=== PATIENT | female | born 1960 | race Caucasian/White ===

== ENCOUNTER 2021-08-26 19:29 | Emergency (ER) | payer SELFPAY ==
[2021-08-26 19:31] VITALS: BP 178/82; PULSE 78; RESP 18; TEMP 36; O2SAT 97
--- NOTE | 2021-08-26 20:09 | PC.NURSE ---
Pt significant other states pt will be leaving d/t waiting room no visitor policy. Pt ambulated out of ER with steady gait.
== END 2021-08-26 20:30 | disposition left against medical advice (07) ==
LOC: ANHED 20:14
DX: R21 Rash and other nonspecific skin eruption (principal)
CPT/HCPCS: 99199

== ENCOUNTER 2021-08-27 07:27 | Emergency (ER) | payer MEDICARE, SELFPAY ==
[2021-08-27 07:37] VITALS: BP 144/102; PULSE 68; RESP 16; TEMP 36.6; O2SAT 96
--- NOTE | 2021-08-27 07:51 | ED.GENADULT ---
HPI - General Adult General Chief complaint: Skin/Abscess/Foreign Body Stated complaint: Rash Time Seen by Provider: 08/27/21 07:34 Source: RN notes reviewed History of Present Illness HPI narrative: Patient presents emergency department from home for rash. Patient states rash initially began 6 days ago on her left lower leg. The rash is located over the left knee over the lateral aspect states was a raised red rash that was itchy and she states that over the past several days the rash has spread up around her left knee as well as now is on her right medial knee and several small areas on her left shoulder. She denies any rashes on her chest abdomen back or any other extremities she denies any new soaps or lotions she states that she had been outside but was not in any known weeds or direct contact with anything that would cause a rash states she has been using calamine lotion Related Data Home Medications Medication Instructions Recorded Confirmed metformin 08/27/21 Allergies Allergy/AdvReac Type Severity Reaction Status Date / Time morphine AdvReac Nausea and Verified 08/27/21 07:44 Vomiting Review of Systems Review of Systems: Gen.: Denies fevers or chills ENT: Denies congestion denies swelling of lips or tongue Respiratory: Denies shortness of breath CV: Denies chest pain GI: Denies abdominal pain nausea, Musculoskeletal: Denies back pain or muscle pain Neuro: Denies numbness, tingling, Skin: See HPI Except as documented, all other systems reviewed and negative [facility] Past Medical History Medical History (Updated 08/27/21 @ 07:56 by Yovany Burgess DO) Diabetes mellitus Social History Social History (Updated 08/27/21 @ 07:53 by Yovany Burgess DO) Smoking status: Never smoker Exam Narrative: APPEARANCE: No acute distress, nontoxic, resting in bed Eyes: EOMI HEENT: Normocephalic, atraumatic, RESPIRATORY: No respiratory distress MUSCULOSKELETAl: No clubbing cyanosis or edema. NEURO: Awake and alert. Following commands, speech normal, no focal deficits SKIN:: Warm, dry. Normal Color erythematous raised macular rash over the left lateral knee that extends just above the knee joint and just inferior does not surround the entire knee overlying excoriation no open wounds no vesicles no purulent drainage small area of macular rash over the right medial knee as well as 2 small areas over the left shoulder Course Course Emergency Course: Discussed with patient results of workup and diagnosis. Discussed need for follow-up with primary care, proper use of medication, and reasons to return to the emergency department. Patient understands and agrees to current treatment plan Vital Signs Vital signs: Vital Signs Temperature 97.9 F 08/27/21 07:37 Pulse Rate 68 08/27/21 07:37 Respiratory Rate 16 08/27/21 07:37 Blood Pressure 144/102 H 08/27/21 07:37 Pulse Oximetry 96 08/27/21 07:37 Oxygen Delivery Room Air 08/27/21 07:37 Temperature 97.9 F 08/27/21 07:37 Pulse Rate 68 08/27/21 07:37 Respiratory Rate 16 08/27/21 07:37 Blood Pressure 144/102 H 08/27/21 07:37 Pulse Oximetry 96 08/27/21 07:37 Oxygen Delivery Room Air 08/27/21 07:37 Medical Decision Making MDM Narrative Medical decision making narrative: Patient with localized rash over left knee for 6 days mild spreading of that area as well as on the right knee and left shoulder there is no vesicles there is no open wounds there is no purulent drainage no signs of infection suspect a contact dermatitis discussed with patient we will start on steroids and loratadine patient continues calamine lotion Vital Signs Vital Signs: Vital Signs Temperature 97.9 F 08/27/21 07:37 Pulse Rate 68 08/27/21 07:37 Respiratory Rate 16 08/27/21 07:37 Blood Pressure 144/102 H 08/27/21 07:37 Pulse Oximetry 96 08/27/21 07:37 Oxygen Delivery Room Air 08/27/21 07:37 Temperature 97.9 F
[2021-08-27] MEDS: predniSONE 20 MG TABLET 60 MG PO (08:30)
[2021-08-27] MEDS: LORATADINE 10 MG TABLET PO (08:30)
== END 2021-08-27 08:40 | disposition home or self-care (01) ==
LOC: ANHED 08:03
PROVIDERS: Emergency Provider Emergency Medicine
DX: L25.9 Unspecified contact dermatitis, unspecified cause (principal); E11.9 Type 2 diabetes mellitus without complications; Z79.84 Long term (current) use of oral hypoglycemic drugs
CPT/HCPCS: 99283; A9270; J7512